=== PATIENT | female | born 2000 | race Caucasian/White ===

== ENCOUNTER → 2024-07-18 11:31 | Outpatient (REF) | payer BC, SELFPAY ==
--- OUTSIDE RECORDS SUMMARY | 2024-07-18 13:25 | XMS_ITS | Clinical Summary ---
Author Organization [facility] Address [address] [place] [id number] Care Team Providers Care Cloth Measurer Name Role Phone Unavailable Primary Care Provider Unavailabl e Social History Tobacco Use Types Packs/Day Years Used Date Smoking Tobacco: Never Assessed Comments Unknown Sex and Gender Information Value Date Recorded Sex Assigned at Not on file Legal Sex Female 4:44 PM CDT Gender Identity Not on file Sexual Orientation Not on file Plan of Treatment Health Maintenance Due Date Last Done Comments Cervical Cancer Screening Pa p Smear (Age 21 to 29) Every 3 Years 2001 Cervical Cancer Screening 2001 Annual Physical 2004 HPV Vaccines (1 - 3-dose series) 2016 Meningococcal B Vaccine (1 o f 2 - Standard) 2017 Hepatitis C 06/16/2019 DTaP, Tdap and Td Vaccines ( 1 - Tdap) 2020 Hepatitis B Vaccines (1 of 3 - 19+ 3-dose series) 2020 COVID-19 Vaccine ( - 2023-2 5 season) 2023 Meningococcal Vaccine Aged Out No samantha mayra eligible based on patient's age to complete this topic Pneumococcal Vaccine: Pediat rics (0 to 5 Years) and At-Risk Patients (6 to 49 Years) Aged Out No longer eligible b ased on patient's age to complete this topic RSV Immunizations Under 20 Months Aged Out No longer eligible based on patient's age to complete this topic
--- OUTSIDE RECORDS SUMMARY | 2024-07-18 13:25 | XMS_ITS | Clinical Summary ---
Author Organization [facility] Address [address] 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
--- OUTSIDE RECORDS SUMMARY | 2024-07-18 13:25 | XMS_ITS | Clinical Summary ---
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 Gender Identity Not on file Sexual Orientation Not on file Last Filed Vital Signs Vital Sign Reading Time Taken Comments Blood Pressure 110/79 03/04/2021 1:46 PM ACOUSTICAL ENGINEER Pulse 89 03/04/2021 1:46 PM ACOUSTICAL ENGINEER Temperature 36.8 C (98.2 F) 03/04/2021 1:46 PM ACOUSTICAL ENGINEER Respiratory Rate 18 03/04/2021 1:46 PM ACOUSTICAL ENGINEER Oxygen Saturation - - Inhaled Oxygen Concentration - - Weight 49.9 kg (110 lb) 03/04/2021 1:46 PM ACOUSTICAL ENGINEER Height 165.1 cm (5' 5 ) 03/04/2021 1:46 PM ACOUSTICAL ENGINEER Body Mass Index 18.3 03/04/2021 1:46 PM ACOUSTICAL ENGINEER Plan of Treatment Health Maintenance Due Date Last Done Comments Hepatitis C Virus (HCV) Screening 2001 Hepatitis B Immunization (2 of 3 - 3-dose series) 07/17/2002 06/19/2002 Human Papillomavirus (HPV) Immunization (1 - 3-dose series) 2016 Meningococcal B Immunization (1 of 2 - Standard) 2017 Influenza Immunization (#1) 11/28/202312/27, 02/01/2009, 02/02/2008, Additional history exists SARS-COV-2 Immunization (2023- season) 2023 Respiratory Syncytial Virus (RSV) Immunization (Adult) (1 - 1-dose 75+ series) 2076 Pneumococcal Immunization Combined Completed 06/19/2002, 2001, 2001, Additional history exists DTaP/Tdap/Td Immunization Discontinued 2012, 08/10/2006, 09/22/2002, Additional history exists TdaP Immunization Completed 11/03/2012 Meningococcal Immunization (ACWY) Completed 11/07/2018, 11/03/2012 Rotavirus Immunization Aged Out No lo nger eligible based on patient's age to complete this topic Insurance [facility] Care Teams Public Speaking Instructor Relationship Specialty Start Date End Date Provider, None [place] PCP - General 03/08/21
== END ==
LOC: ANHLAB 11:31
PROVIDERS: Visit Provider Plastic Surgery
DX: D22.5 Melanocytic nevi of trunk (principal); L90.5 Scar conditions and fibrosis of skin; L30.9 Dermatitis, unspecified; L81.4 Other melanin hyperpigmentation; D48.5 Neoplasm of uncertain behavior of skin
CPT/HCPCS: 88305; 88342